=== PATIENT | female | born 1970 | race African-American/Black ===

== ENCOUNTER 2017-09-29 11:10 | Emergency (ER) | payer SELFPAY ==
[2017-09-29 11:41] LABS: Absolute Lymphocytes (CBC) 2.4 K/uL (0.7-4.9); Absolute Monocytes 1.1 K/uL (0.1-1.3); Absolute Neutrophil 6.6 K/uL (1.8-8.0); Basophils % 0.5 % (0-1.3); Hematocrit 38.7 % (36.0-45.0); Lymphocytes % 23.6 % (15.3-44.8); MCH 30.9 pg (27.0-35.0); MCV 89.1 fL (80-100); MPV 8.1 fL (7.6-11.3); Monocytes % 10.6 % (3.3-12.3); RBC Red Blood Cell Count 4.34 M/uL (3.86-4.86)
[2017-09-29 11:50] LABS: Protime INR 0.96
[2017-09-29 11:59] LABS: Urine Blood NEGATIVE (NEG); Urine Glucose NEGATIVE (NEG); Urine Protein NEGATIVE (NEG); Urine Specific Gravity 1.015 (1.005-1.030); Urine pH 7.5 (5.0-7.0)
[2017-09-29 12:00] LABS: Barbiturates NEGATIVE; Benzodiazepines NEGATIVE; Cocaine NEGATIVE; METHAMPHETAM NEGATIVE (NEGATIVE); Opiates NEGATIVE; Phencyclidine NEGATIVE; THC Cannibis NEGATIVE
[2017-09-29 12:33] LABS: ALT/SGPT 40 IU/L (10-60); AST/SGOT 33 IU/L (10-42); Alkaline Phosphatase 63 IU/L (42-121); BUN Blood Urea Nitrogen 9 mg/dL (6-20); Bicarbonate 29 mEq/L (21-31); Bilirubin Direct < 0.1 mg/dL (0-0.2); Bilirubin Total < 0.2 mg/dL (0.3-1.2); Glucose Level 96 mg/dL (65-120); Potassium 3.6 mEq/L (3.6-5.0); Protein, Total 7.2 g/dL (6.0-8.3); Sodium Level 134 mEq/L (135-145)
[2017-09-29] MEDS ORDERED: ACETAMINOPHEN 500 MG TAB ONE ×2 (12:34→22:34)
[2017-09-29 12:43] LABS: Alcohol Serum/Plasma < 10 mg/dl
[2017-09-29] MEDS ORDERED: LISINOPRIL 10 MG TAB ONE (22:34)
[2017-09-29] MEDS ORDERED: hydrOXYzine HCl 25 MG TAB ONE (22:34)
--- NOTE | 2017-09-29 22:41 | EKG ---
Test Date: 2017-09-29 Test Time: 11:26:24 Clinical Nurse: SHAISTA MEASUREMENT RESULTS: Intervals: Rate: 67 AK: 178 QRSD: 78 QT: 414 QTc: 437 [place]: P: 72 AK: 178 QRS: 61 T: 56 INTERPRETIVE STATEMENTS: Normal sinus rhythm Nonspecific T wave abnormality Abnormal ECG No previous ECG available for comparison Electronically Signed On 09-29-17 22:40:43 CDT by Cornell Garza
[2017-09-29] MEDS ORDERED: QUETIAPINE 100MG TAB ONE (22:42)
[2017-09-30] MEDS ORDERED: hydrOXYzine HCl 25 MG TAB ONE (11:34)
[2017-09-30] MEDS ORDERED: AMOXICILLIN TRIHYDR 250 MG CAP ONE (11:34)
[2017-09-30] MEDS ORDERED: QUETIAPINE 100MG TAB PO ONE (11:45)
[2017-09-30] MEDS ORDERED: NICOTINE 14 MG/PAT TD ONE (12:00)
[2017-09-30] MEDS ORDERED: QUETIAPINE 100MG TAB PO SCH (21:00)
[2017-09-30] MEDS ORDERED: hydrOXYzine HCl 25 MG TAB PO SCH (21:00)
[2017-09-30] MEDS ORDERED: AMOXICILLIN TRIHYDR 250 MG CAP PO SCH (21:00)
[2017-09-30] MEDS ORDERED: QUETIAPINE 100MG TAB ONE (23:08)
[2017-10-01] MEDS ORDERED: hydrOXYzine HCl 25 MG TAB ONE (09:12)
[2017-10-01] MEDS ORDERED: QUETIAPINE 100MG TAB PO ONE (09:15)
--- NOTE | 2017-10-01 17:25 | ER ---
Nurse's Notes [facility] Name: Lizett Jacobsen Age: 47 yrs Sex: Female : 1970 Arrival Date: 09/29/2017 Time: 11:16 Bed 17 Private MD: Diagnosis: Suicidal ideations;Major depressive disorder, recurrent Presentation: 09/29 11:18 Presenting complaint: EMS states: Suicidal ideations for "a few days". Pt does not have ss a plan currently, but has had three previous attempts by taking medications in excess and running in traffic. Patient has been at [facility] receiving rehabilitation for a cocaine addiction. Pt reports her last day to use was 7 days ago. Transition of care: patient was not received from another setting of care. Onset of symptoms is unknown. Risk Assessment: Do you want to hurt yourself or someone else? Patient reports desire/thoughts of hurting themselves or someone else. Provider notified. Initial Sepsis Screen: Does the patient meet any 2 criteria? No. Patient's initial sepsis screen is negative. Does the patient have a suspected source of infection? No. Patient's initial sepsis screen is negative. Note Pt wrote a note stating that she has been having thoughts about hurting herself. See chart for note. Care prior to arrival: None. 11:18 Method Of Arrival: EMS: [facility] ss 11:18 Acuity: HENRIK 2 ss CLAIMS SERVICE ADJUSTOR: 10/01 18:36 LMP N/A - Irregular menses em Historical: - Allergies: 09/29 12:40 Ibuprofen; ed1 - Home Meds: 11:24 hydroxyzine HCl 50 mg Oral tab 1 tab twice a day [Active]; quetiapine 300 mg oral tab 1 ss tab once daily [Active]; - PMHx: 11:24 Depression; Anxiety; ss - Immunization history:: Adult Immunizations up to date. - Ebola Screening: : Patient denies exposure to infectious person Patient denies travel to an Ebola-affected area in the 21 days before illness onset. - Social history:: Smoking status: Patient uses tobacco products, smokes one-half pack cigarettes per day. Screenin:32 Nutritional screening: No deficits noted. Tuberculosis screening: Never had TB. ss 12:29 Abuse screen: Denies threats or abuse. Fall Risk None identified. sv Assessment: 11:25 General: Appears in no apparent distress. comfortable, Behavior is calm, cooperative, sv appropriate for age. Pain: Denies pain. Neuro: Level of Consciousness is awake, alert, obeys commands, Oriented to person, place, time, situation, Moves all extremities. Full function. Respiratory: Respiratory effort is even, unlabored, Respiratory pattern is regular, symmetrical. Derm: Skin is normal. Musculoskeletal: Range of motion: intact in all extremities. 13:12 Reassessment: Patient appears in no apparent distress at this time. No changes from sv previously documented assessment. Patient and/or family updated on plan of care and expected duration. Pain level reassessed. Patient is alert, oriented x 3, equal unlabored respirations, skin warm/dry/pink. 13:13 Reassessment: Pt given lunch tray. sv 13:47 Reassessment: Patient appears in no apparent distress at this time. Pt appears to be sv sleeping with eyes closed. Respirations even and unlabored with no difficulty breathing. 15:17 Reassessment: Patient appears in no apparent distress at this time. No changes from sv previously documented assessment. Patient and/or family updated on plan of care and expected duration. Pain level reassessed. Patient is alert, oriented x 3, equal unlabored respirations, skin warm/dry/pink. 15:17 Reassessment: Pt given panchito crackers. sv 16:41 Reassessment: Patient appears in no apparent distress at this time. Patient and/or sv family updated on plan of care and expected duration. Pain level reassessed. Patient is alert, oriented x 3, equal unlabored respirations, skin warm/dry/pink. 17:20 Reassessment: Pt given dinner tray and juice. sv 17:36 Reassessment: [employer] keeper helper at bedside at this time with the pt, pt appears sg pleasant speaking calmly with [employer] rep. 18:04 Reassessment: Patient appears in no apparent distress at this time. No changes from sv previously documented assessment. Patient and/or family updated on plan of care and expected duration. Pain level reassessed. Patient is alert, oriented x 3, equal unlabored respirations, skin warm/dry/pink. 18:35 Reassessment: Patient appears in no apparent distress at this time. Patient and/or sv family updated on plan of care and expected duration. Pain level reassessed. Patient is alert, oriented x 3, equal unlabored respirations, skin warm/dry/pink. 19:10 Reassessment: Patient appears in no apparent distress at this time. patient received on mg2 bed sleeping comfortably. 20:27 Reassessment: Received a call from Ronny Thurston from [facility] who wanted to know ao if patient will be going back to [facility] any time soon. Karena was told that patient is currently waiting on a transfer. 21:22 Reassessment: Patient wake up agitated and stating that she needs to speak to the ao doctor. Charge nurse was notified. 22:55 Reassessment: Received a verbal order from Dr Simpson to medicate patient with home ao medications. Orders for medications had been put and patient had been medicated with her home medications. See MAR for administrations. 23:40 Reassessment: Patient appears in no apparent distress at this time. Patient sleeping in ao no aperient distress. sitter in front of patient room. Patient with door open. 09/30 00:30 Reassessment: Patient appears in no apparent distress at this time. Sitter in front of ao patient room. Door open and patient appears under no distress. 01:25 Reassessment: patient sleeping on bed. mg2 03:03 Reassessment: Patient appears in no apparent distress at this time. Patient sleeping ao under no apparent distress. Sitter in front of patient's room. Patient's door is open. 06:56 Reassessment: patient is awake, no apparent distress noted. mg2 07:19 Reassessment: Patient appears in no apparent distress at this time. Patient and/or ch family updated on plan of care and expected duration. Pain level reassessed. pt sleeping in bed. pt sits up, looks around. I ask her if she needs anything, she states she needs breakfast. I inform pt she has a tray ordered and coming. pt states thanks and rolls back over. pt states she just wants to , but not having active suicidal thoughts right now. 08:20 Reassessment: Patient appears in no apparent distress at this time. ch 09:17 Reassessment: Patient appears in no apparent distress at this time. Patient and/or ch family updated on plan of care and expected duration. Pain level reassessed. pt finished 100% of breakfast, drank two cups of juice and one water cup. pt voids to [facility], sleeping in room now. no s/s of distress. pt denies wanting to kill herself at this time, but states she just feels off, and hopeless. 10:08 General: Appears in no apparent distress. comfortable, Behavior is calm, appropriate aj for age, quiet. Cardiovascular: Capillary refill < 3 seconds in bilateral fingers Patient's skin is warm and dry. Respiratory: Airway is patent Respiratory effort is even, unlabored, Respiratory pattern is regular, symmetrical. Derm: Skin is pink, warm \\T\\ dry. normal. 10:45 Reassessment: Patient using phone at nurses station for personal call. aj 10:52 Reassessment: Dr Kamara assessed patient at bedside. aj 11:05 Reassessment: This nurse spoke with patient about concerns regarding television. I aj instructed patient that I would place a work order for the TV. I was able to turn on TV to one channel, but was not able to change channel as remote is missing. Patient stated "it would be fine". 12:29 Reassessment: Patient provided lunch tray. aj 12:36 Reassessment: Patient provided with nicotine patch, as requested. Patient appears to be aj resting comfortably in bed. 12:45 Reassessment: Cornelia from IT brought remote for TV and set TV to patient requested aj channel. 14:54 Reassessment: Patient appears in no apparent distress at this time. No changes from aj previously documented assessment. Patient and/or family updated on plan of care and expected duration. Pain level reassessed. Patient is alert, oriented x 3, equal unlabored respirations, skin warm/dry/pink. 16:13 Reassessment: Patient is using the phone at the nurses station. aj 19:30 Reassessment: receieved patient from AM shift. lying on bed, asleep. already on rv patient's gown. VS are stable. 22:30 Reassessment: patient got a little anxious and demanding for her Seroquel dose. rv facilitated and given orally. 22:30 Reassessment: patient is asleep on her left side. rv 10/01 00:35 Reassessment: patient woke up. asked for some biscuits. given dose of Seroquel 300 mg rv PO. 02:45 Reassessment: dr Simpson went inside the room and evaluated the patient. patient is rv calm and quiet. patient is still for transfer as of this moment. 06:38 Reassessment: patient is still asleep laying on her back. VS are good. rv 06:42 Reassessment: patient did not express any plans for suicidal ideations the whole night. rv patient is calm and quiet. most of the time sleeping. 07:05 Reassessment: Patient appears in no apparent distress at this time. resting comfortably em with eyes closed, respirations even and unlabored, skin normal warm and dry. 08:17 Reassessment: Patient appears in no apparent distress at this time. Patient and/or em family updated on plan of care and expected duration. Pain level reassessed. up and eating breakfast tray, reports wanting to hurt herself "maybe a little." does not have a plan. 09:15 Reassessment: Patient appears in no apparent distress at this time. pt request em medications, "I take 50 mg hydroxyzine and 150 mg Seroquel. They gave me my Seroquel yesterday but not my hydroxzine." Dr. Parks notified, new orders received. 12:00 Reassessment: Patient appears in no apparent distress at this time. Patient and/or em family updated on plan of care and expected duration. Pain level reassessed. Patient is alert, oriented x 3, equal unlabored respirations, skin warm/dry/pink. 14:00 Reassessment: Patient appears in no apparent distress at this time. Patient and/or em family updated on plan of care and expected duration. Pain level reassessed. Patient is alert, oriented x 3, equal unlabored respirations, skin warm/dry/pink. 15:00 Reassessment: Patient appears in no apparent distress at this time. Patient and/or em family updated on plan of care and expected duration. Pain level reassessed. Patient is alert, oriented x 3, equal unlabored respirations, skin warm/dry/pink. 17:40 Reassessment: Patient appears in no apparent distress at this time. pt signed consent em form to be transferred. 18:43 Reassessment: Patient appears in no apparent distress at this time. Patient and/or em family updated on plan of care and expected duration. Pain level reassessed. report given to EMS, will transport to [facility]. Psych: 09/29 11:25 Subjective: Patient's mood is sad, Delusions are denied, Hallucinations are denied sv Having thoughts of suicide. Plan for suicide is "Well all I had at the rehab place is razors and that's what I was going to use.". Objective: Patient is cooperative, Speech is normal, Affect is appropriate. Interventions: Removed personal items and placed in bag. Patient placed in hospital gown. Searched person for dangerous items. Urine collected and sent for urine drug test. Patient reassessed during use of restraints. Patient is physically safe. Patient's cardiac status is stable. Patient's respirations are even and unlabored. Patient has good circulation in all extremities as indicated by capillary refill < 3 seconds. Patient's ROM assessed and is intact. Patient nutrition and hydration needs will continue to be monitored and addressed. Patient hygiene and elimination needs met. Patient assessed for signs of distress. Patient remains reasonably comfortable at this time. Assisted patient in de-escalation of behavior by removing stimuli causing behavior where possible. Suicide Risk Assessment: Sad Person Scale: Sex of patient: Female: Score 0 points. Age of patient: Score 0 point if patient falls outside of specified age parameters. Depression: Score 1 point if signs of depression are present. Previous Attempt: Score 1 point if patient has previously attempted suicide. Substance Abuse: Score 1 point if patient abuses alcohol or drugs. Rational Thinking: Score 0 point if patient has rational thinking. Social Support: Score 0 if social support is present/available. Organized Plan: Score 1 point if patient had a plan in place. Relationship: Score 0 point if patient has a spouse or domestic partner. Chronic Sickness: Score 1 point if patient has illness, chronic, debilitating, or severe. TOTAL POINTS: If total points are 5-6, proposed clinical action is to strongly consider hospitalization, depending upon confidence in the follow-up arrangement. Implement suicide precautions. Safety Checks: Personal items have been removed. Door is open. No visitors are present at this time. Patient uses cocaine, Last use was 09/21/17. Patient uses marijuana Last use was 09/22/17.. Commitment: Patient will be a voluntary commitment. Vital Signs: 11:31 BP 120 / 84; Pulse 58; Resp 17; Temp 98.0(O); Pulse Ox 100% on R/A; Weight 58.97 kg; ss Height 5 ft. 4 in. (162.56 cm); Pain 0/10; 16:40 BP 116 / 71; Pulse 68; Resp 16; Pulse Ox 100% ; sv 20:21 BP 144 / 86; Pulse 68; Resp 17; Temp 98.2; Pulse Ox 99% on R/A; mw2 0607 00:17 BP 95 / 59; Pulse 88; Resp 18; Temp 98.3(O); Pulse Ox 99% on R/A; Pain 0/10; mg2 04:20 BP 110 / 60; Pulse 72; Resp 17; Temp 98.4; Pulse Ox 99% on R/A; mw2 07:19 BP 116 / 58; Pulse 65; Resp 18; Temp 98.3; Pulse Ox 99% on R/A; Pain 0/10; ch 10:24 BP 102 / 70; Pulse 76; Resp 16 S; Pulse Ox 100% on R/A; Pain 7/10; jb4 11:28 BP 101 / 61; Pulse 64; Resp 16 S; Temp 98.3(O); Pulse Ox 100% on R/A; Pain 7/10; jb4 15:30 BP 95 / 52; Pulse 93; Resp 16 S; Temp 98.3(O); Pulse Ox 98% on R/A; Pain 7/10; jb4 19:30 BP 104 / 60; Pulse 92 LA; Resp 16 S; Temp 98.5(O); Pulse Ox 98% on R/A; Pain 8/10; jb4 23:30 BP 97 / 57; Pulse 95; Resp 14; Pulse Ox 98% ; rv 06/08 03:30 BP 101 / 61; Pulse 90; Resp 14; Pulse Ox 98% ; bp 08:00 BP 109 / 62; Pulse 79; Resp 18; Pulse Ox 100% on R/A; dh3 12:04 BP 107 / 54; Pulse 82; Resp 18; Pulse Ox 99% ; Pain 0/10; tt1 16:00 BP 102 / 66; Pulse 82; Resp 17; Pulse Ox 100% on R/A; dh3 09/29 11:31 Body Mass Index 22.31 (58.97 kg, 162.56 cm) ss 09/30 00:17 patient is sleeping. mg2 15:30 Pt was asleep prior to b/p being taken. jb4 ED Course: 09/29 11:16 Patient arrived in ED. sv 11:16 Mani Garay PA is PHCP. cp 11:16 Bob Bonilla MD is Attending Physician. cp 11:21 Polly Gray RN is Primary Nurse. sv 11:23 Triage completed. ss 11:24 Arm band placed on right wrist. ss 11:25 Initial lab(s) drawn, by me, sent to lab. Inserted saline lock: 20 gauge in right sv antecubital area, using aseptic technique. Blood collected. Flushed right antecubital with 5 ml normal saline. 11:30 Safety Checks: Personal items have been removed. The door is open or patient has been sv placed in a hallway bed/chair. There are no family/friend visitors at this time Sitter present at this time. 11:31 EKG done, by line technician. reviewed by Bob Bonilla MD. at1 11:32 Patient has correct armband on for positive identification. Bed in low position. Call ss light in reach. 11:42 Urine --Ancillary (enter results) Sent. sv 11:42 Urine Dipstick--Ancillary (enter results) Sent. sv 11:45 Safety Checks: Personal items have been removed. The door is open or patient has been sv placed in a hallway bed/chair. There are no family/friend visitors at this time Sitter present at this time. 12:00 Safety Checks: Personal items have been removed. The door is open or patient has been sv placed in a hallway bed/chair. There are no family/friend visitors at this time Sitter present at this time. 12:15 Safety Checks: Personal items have been removed. The door is open or patient has been ed1 placed in a hallway bed/chair. There are no family/friend visitors at this time Sitter present at this time. 12:17 Diet tray given. ed1 12:30 Safety Checks: Personal items have been removed. The door is open or patient has been ed1 placed in a hallway bed/chair. There are no family/friend visitors at this time Sitter present at this time. Other: Pt reports tooth pain. GUSTAVO Matias notified. 12:45 Safety Checks: Personal items have been removed. The door is open or patient has been ed1 placed in a hallway bed/chair. There are no family/friend visitors at this time Sitter present at this time. 13:00 Safety Checks: Personal items have been removed. The door is open or patient has been ed1 placed in a hallway bed/chair. There are no family/friend visitors at this time Sitter present at this time. 13:15 Safety Checks: Personal items have been removed. The door is open or patient has been ed1 placed in a hallway bed/chair. There are no family/friend visitors at this time Sitter present at this time. 13:30 Appears to be sleeping. Safety Checks: Personal items have been removed. The door is ed1 open or patient has been placed in a hallway bed/chair. There are no family/friend visitors at this time Sitter present at this time. 13:45 Appears to be sleeping. Safety Checks: Personal items have been removed. The door is ed1 open or patient has been placed in a hallway bed/chair. There are no family/friend visitors at this time Sitter present at this time. 14:00 Appears to be sleeping. Safety Checks: Personal items have been removed. The door is ed1 open or patient has been placed in a hallway bed/chair. There are no family/friend visitors at this time Sitter present at this time. 14:15 Appears to be sleeping. Safety Checks: Personal items have been removed. The door is ed1 open or patient has been placed in a hallway bed/chair. There are no family/friend visitors at this time Sitter present at this time. 14:30 Appears to be sleeping. Safety Checks: Personal items have been removed. The door is ed1 open or patient has been placed in a hallway bed/chair. There are no family/friend visitors at this time Sitter present at this time. 14:45 Appears to be sleeping. Safety Checks: Personal items have been removed. The door is ed1 open or patient has been placed in a hallway bed/chair. There are no family/friend visitors at this time Sitter present at this time. 15:00 Safety Checks: Personal items have been removed. The door is open or patient has been sv placed in a hallway bed/chair. There are no family/friend visitors at this time Sitter present at this time. 15:15 Safety Checks: Personal items have been removed. The door is open or patient has been sv placed in a hallway bed/chair. There are no family/friend visitors at this time Sitter present at this time. 15:30 Safety Checks: Personal items have been removed. The door is open or patient has been sv placed in a hallway bed/chair. There are no family/friend visitors at this time Sitter present at this time. 15:45 Safety Checks: Personal items have been removed. The door is open or patient has been sv placed in a hallway bed/chair. There are no family/friend visitors at this time Sitter present at this time. 16:00 Safety Checks: Personal items have been removed. The door is open or patient has been sv placed in a hallway bed/chair. There are no family/friend visitors at this time Sitter present at this time. 16:15 Safety Checks: Personal items have been removed. The door is open or patient has been sv placed in a hallway bed/chair. There are no family/friend visitors at this time Sitter present at this time. 16:30 Safety Checks: Personal items have been removed. The door is open or patient has been sv placed in a hallway bed/chair. There are no family/friend visitors at this time Sitter present at this time. 16:45 Safety Checks: Personal items have been removed. The door is open or patient has been sv placed in a hallway bed/chair. There are no family/friend visitors at this time Sitter present at this time. 17:00 Safety Checks: Personal items have been removed. The door is open or patient has been sv placed in a hallway bed/chair. There are no family/friend visitors at this time Sitter present at this time. 17:15 No apparent distress. Resting quietly. Safety Checks: Personal items have been removed. sv The door is open or patient has been placed in a hallway bed/chair. There are no family/friend visitors at this time Sitter present at this time. 17:15 Safety checks: Items removed: yes. Door open/sign placed on door: yes. Family/friend 5 present: no. 17:30 Safety Checks: Personal items have been removed. The door is open or patient has been sv placed in a hallway bed/chair. There are no family/friend visitors at this time Sitter present at this time. 17:30 Safety checks: Items removed: yes. Door open/sign placed on door: yes. Family/friend mh5 present: Other: [facility] with pt. 17:45 Safety Checks: Personal items have been removed. The door is open or patient has been sv placed in a hallway bed/chair. There are no family/friend visitors at this time Sitter present at this time. 17:45 Safety checks: Items removed: yes. Door open/sign placed on door: yes. Family/friend mh5 present: no. 18:00 Safety Checks: Personal items have been removed. The door is open or patient has been sv placed in a hallway bed/chair. There are no family/friend visitors at this time Sitter present at this time. 18:00 Safety checks: Items removed: yes. Door open/sign placed on door: yes. Family/friend mw2 present: no. 18:15 No apparent distress. Safety Checks: Personal items have been removed. The door is open sv or patient has been placed in a hallway bed/chair. There are no family/friend visitors at this time Sitter present at this time. 18:15 Safety checks: Items removed: yes. Door open/sign placed on door: yes. Family/friend mw2 present: no. 18:30 Safety Checks: Personal items have been removed. The door is open or patient has been sv placed in a hallway bed/chair. There are no family/friend visitors at this time Sitter present at this time. 18:30 Safety checks: Items removed: yes. Door open/sign placed on door: yes. Family/friend mw2 present: no. 18:45 Safety Checks: Personal items have been removed. The door is open or patient has been sv placed in a hallway bed/chair. There are no family/friend visitors at this time Sitter present at this time. 18:45 Safety checks: Items removed: yes. Door open/sign placed on door: yes. Family/friend mw2 present: no. 19:00 Safety Checks: Personal items have been removed. The door is open or patient has been sv placed in a hallway bed/chair. There are no family/friend visitors at this time Sitter present at this time. 19:00 Safety checks: Items removed: yes. Door open/sign placed on door: yes. Family/friend mw2 present: no. 19:07 Report given to Elvin CHEN. sv 19:15 Safety checks: Items removed: yes. Door open/sign placed on door: yes. Family/friend mw2 present: no. 19:30 Safety checks: Items removed: yes. Door open/sign placed on door: yes. Family/friend mw2 present: no. 19:45 Safety checks: Items removed: yes. Door open/sign placed on door: yes. Family/friend mw2 present: no. 20:00 Safety checks: Items removed: yes. Door open/sign placed on door: yes. Family/friend mw2 present: no. 20:15 Safety checks: Items removed: yes. Door open/sign placed on door: yes. Family/friend mw2 present: no. 20:30 Safety checks: Items removed: yes. Door open/sign placed on door: yes. Family/friend mw2 present: no. 20:45 Safety checks: Items removed: yes. Door open/sign placed on door: yes. Family/friend mw2 present: no. 21:00 Safety checks: Items removed: yes. Door open/sign placed on door: yes. Family/friend mw2 present: no. 21:15 Safety checks: Items removed: yes. Door open/sign placed on door: yes. Family/friend mw2 present: no. 21:30 Safety checks: Items removed: yes. Door open/sign placed on door: yes. Family/friend mw2 present: no. 21:45 Safety checks: Items removed: yes. Door open/sign placed on door: yes. Family/friend mw2 present: no. 22:00 Safety checks: Items removed: yes. Door open/sign placed on door: yes. Family/friend mw2 present: no. 22:15 Safety checks: Items removed: yes. Door open/sign placed on door: yes. Family/friend mw2 present: no. 22:30 Safety checks: Items removed: yes. Door open/sign placed on door: yes. Family/friend mw2 present: no. Diet: Patient given a regular meal tray. Patient given ice chips. Patient given juice. Diet: Tolerated well. 22:45 Safety checks: Items removed: yes. Door open/sign placed on door: yes. Family/friend mw2 present: no. 23:00 Safety checks: Items removed: yes. Door open/sign placed on door: yes. Family/friend mw2 present: no. 23:15 Safety checks: Items removed: yes. Door open/sign placed on door: yes. Family/friend mw2 present: no. 23:30 Safety checks: Items removed: yes. Door open/sign placed on door: yes. Family/friend mw2 present: no. 23:45 Safety checks: Items removed: yes. Door open/sign placed on door: yes. Family/friend mw2 present: no. 09/30 00:00 Safety checks: Items removed: yes. Door open/sign placed on door: yes. Family/friend mw2 present: no. 00:15 Safety checks: Items removed: yes. Door open/sign placed on door: yes. Family/friend mw2 present: no. Diet: Patient given snack. Patient given ice chips. Patient given juice. 00:30 Safety checks: Items removed: yes. Door open/sign placed on door: yes. Family/friend mw2 present: no. Safety checks: Items removed: yes. Door open/sign placed on door: yes. Family/friend present: no. 00:45 Safety checks: Items removed: yes. Door open/sign placed on door: yes. Family/friend mw2 present: no. 01:00 Safety checks: Items removed: yes. Door open/sign placed on door: yes. Family/friend mw2 present: no. 01:15 Safety checks: Items removed: yes. Door open/sign placed on door: yes. Family/friend mw2 present: no. 01:30 Safety checks: Items removed: yes. Door open/sign placed on door: yes. Family/friend mw2 present: no. 01:45 Safety checks: Items removed: yes. Door open/sign placed on door: yes. Family/friend mw2 present: no. 02:00 Safety checks: Items removed: yes. Door open/sign placed on door: yes. Family/friend mw2 present: no. 02:15 Safety checks: Items removed: yes. Door open/sign placed on door: yes. Family/friend mw2 present: no. 02:30 Safety checks: Items removed: yes. Door open/sign placed on door: yes. Family/friend mw2 present: no. 02:45 Safety checks: Items removed: yes. Door open/sign placed on door: yes. Family/friend mw2 present: no. 03:00 Safety checks: Items removed: yes. Door open/sign placed on door: yes. Family/friend mw2 present: no. 03:15 Safety checks: Items removed: yes. Door open/sign placed on door: yes. Family/friend mw2 present: no. 03:30 Safety checks: Items removed: yes. Door open/sign placed on door: yes. Family/friend mw2 present: no. 03:45 Safety checks: Items removed: yes. Door open/sign placed on door: yes. Family/friend mw2 present: no. 04:00 Safety checks: Items removed: yes. Door open/sign placed on door: yes. Family/friend mw2 present: no. 04:15 Safety checks: Items removed: yes. Door open/sign placed on door: yes. Family/friend mw2 present: no. 04:30 Safety checks: Items removed: yes. Door open/sign placed on door: yes. Family/friend mw2 present: no. 04:45 Safety checks: Items removed: yes. Door open/sign placed on door: yes. Family/friend mw2 present: no. 05:00 Safety checks: Items removed: yes. Door open/sign placed on door: yes. Family/friend mw2 present: no. 05:15 Safety checks: Items removed: yes. Door open/sign placed on door: yes. Family/friend mw2 present: no. 05:30 Safety checks: Items removed: yes. Door open/sign placed on door: yes. Family/friend mw2 present: no. 05:45 Safety checks: Items removed: yes. Door open/sign placed on door: yes. Family/friend mw2 present: no. 06:00 Safety checks: Items removed: yes. Door open/sign placed on door: yes. Family/friend mw2 present: no. 06:15 Safety checks: Items removed: yes. Door open/sign placed on door: yes. Family/friend mw2 present: no. 06:30 Safety checks: Items removed: yes. Door open/sign placed on door: yes. Family/friend mw2 present: no. 06:45 Safety checks: Items removed: yes. Door open/sign placed on door: yes. Family/friend mw2 present: no. 07:00 Safety Checks: Personal items have been removed. The door is open or patient has been ch placed in a hallway bed/chair. There are no family/friend visitors at this time Sitter present at this time. 07:15 Safety Checks: Personal items have been removed. The door is open or patient has been ch placed in a hallway bed/chair. There are no family/friend visitors at this time Sitter present at this time. 07:28 Aurora Brooks RN is Primary Nurse. 07:30 Safety Checks: Personal items have been removed. The door is open or patient has been ch placed in a hallway bed/chair. There are no family/friend visitors at this time Sitter present at this time. 07:35 Safety checks: Items removed: yes. Door open/sign placed on door: yes. Family/friend em1 present: no. 08:00 Safety checks: Items removed: yes. Door open/sign placed on door: yes. Family/friend em1 present: no. 08:15 Safety checks: Items removed: yes. Door open/sign placed on door: yes. Family/friend em1 present: no. 08:30 Safety checks: Items removed: yes. Door open/sign placed on door: yes. Family/friend em1 present: no. 08:47 Safety checks: Items removed: yes. Door open/sign placed on door: yes. Family/friend em1 present: no. 08:51 Safety checks: Items removed: yes. Door open/sign placed on door: yes. Family/friend em1 present: no. 09:04 Safety checks: Items removed: yes. Door open/sign placed on door: yes. Family/friend jb4 present: no. 09:17 Safety checks: Items removed: yes. Door open/sign placed on door: yes. Family/friend jb4 present: no. 09:30 Safety checks: Items removed: yes. Door open/sign placed on door: yes. Family/friend jb4 present: no. 09:43 Safety checks: Items removed: yes. Door open/sign placed on door: yes. Family/friend jb4 present: no. 09:55 Safety checks: Items removed: yes. Door open/sign placed on door: yes. Family/friend jb4 present: no. 10:01 Primary Nurse role handed off by Aurora Brooks RN 10:01 Vida Mackenzie RN is Primary Nurse. aj 10:07 Safety checks: Items removed: yes. Door open/sign placed on door: yes. Family/friend jb4 present: no. 10:22 Safety checks: Items removed: yes. Door open/sign placed on door: yes. Family/friend jb4 present: no. 10:37 Safety checks: Items removed: yes. Door open/sign placed on door: yes. Family/friend jb4 present: Other: Pt ambulated to nurses station to use telephone. 10:51 Safety checks: Items removed: yes. Door open/sign placed on door: yes. Family/friend jb4 present: no. 11:04 Safety checks: Items removed: yes. Door open/sign placed on door: yes. Family/friend jb4 present: Other: Pt ambulated to bedside commode and back to bed. 11:19 Safety checks: Items removed: yes. Door open/sign placed on door: yes. Family/friend jb4 present: no. 11:34 Safety checks: Items removed: yes. Door open/sign placed on door: yes. Family/friend jb4 present: no. 11:51 Safety checks: Items removed: yes. Door open/sign placed on door: yes. Family/friend em1 present: no. 12:03 Safety checks: Items removed: yes. Door open/sign placed on door: yes. Family/friend jb4 present: no. 12:16 Safety checks: Items removed: yes. Door open/sign placed on door: yes. Family/friend jb4 present: no. 12:30 Safety checks: Items removed: yes. Door open/sign placed on door: yes. Family/friend jb4 present: no. 12:45 Safety checks: Items removed: yes. Door open/sign placed on door: yes. Family/friend jb4 present: no. 13:00 Safety checks: Items removed: yes. Door open/sign placed on door: yes. Family/friend jb4 present: no. 13:15 Safety checks: Items removed: yes. Door open/sign placed on door: yes. Family/friend jb4 present: no. 13:30 Safety checks: Items removed: yes. Door open/sign placed on door: yes. Family/friend jb4 present: no. 13:45 Safety checks: Items removed: yes. Door open/sign placed on door: yes. Family/friend jb4 present: no. 14:00 Safety checks: Items removed: yes. Door open/sign placed on door: yes. Family/friend jb4 present: Other: Pt ambulated to bedside commode and back to bed, and was given a television remote per request. 14:15 Safety checks: Items removed: yes. Door open/sign placed on door: yes. Family/friend jb4 present: no. 14:30 Safety checks: Items removed: yes. Door open/sign placed on door: yes. Family/friend jb4 present: Other: Pt was given a cup of ice with juice and panchito crackers per request. 14:45 Safety checks: Items removed: yes. Door open/sign placed on door: yes. Family/friend jb4 present: no. 15:00 Safety checks: Items removed: yes. Door open/sign placed on door: yes. Family/friend jb4 present: Other: television channel changed per pt's request. 15:15 Safety checks: Items removed: yes. Door open/sign placed on door: yes. Family/friend jb4 present: no. 15:30 Safety checks: Items removed: yes. Door open/sign placed on door: yes. Family/friend jb4 present: no. 15:45 Safety checks: Items removed: yes. Door open/sign placed on door: yes. Family/friend jb4 present: no. 16:00 Safety checks: Items removed: yes. Door open/sign placed on door: yes. Family/friend jb4 present: no. 16:15 Safety checks: Items removed: yes. Door open/sign placed on door: yes. Family/friend jb4 present: Other: pt ambulated to nurses station to use the telephone per request. 16:30 Safety checks: Items removed: yes. Door open/sign placed on door: yes. Family/friend jb4 present: no. 16:45 Safety checks: Items removed: yes. Door open/sign placed on door: yes. Family/friend jb4 present: no. 17:00 Safety checks: Items removed: yes. Door open/sign placed on door: yes. Family/friend jb4 present: no. 17:15 Safety checks: Items removed: yes. Door open/sign placed on door: yes. Family/friend jb4 present: no. 17:20 Safety checks: Family/friend present: Other: pt ambulated to the bedside commode and jb4 back to bed. 17:30 Safety checks: Items removed: yes. Door open/sign placed on door: yes. Family/friend jb4 present: Other: Pt given television remote per request. 17:45 Safety checks: Items removed: yes. Door open/sign placed on door: yes. Family/friend jb4 present: no. 18:00 Safety checks: Items removed: yes. Door open/sign placed on door: yes. Family/friend jb4 present: Other: given a cup of ice w/ juice and crackers per pt request. 18:15 Safety checks: Items removed: yes. Door open/sign placed on door: yes. Family/friend jb4 present: no. 18:30 Safety checks: Items removed: yes. Door open/sign placed on door: yes. Family/friend jb4 present: no. 18:45 Safety checks: Items removed: yes. Door open/sign placed on door: yes. Family/friend jb4 present: no. 19:00 Safety checks: Items removed: yes. Door open/sign placed on door: yes. Family/friend jb4 present: no. 19:01 Primary Nurse role handed off by Vida Mackenzie RN bp 19:01 Agustin Alves, RN is Primary Nurse. bp 19:15 Safety Checks: Personal items have been removed. The door is open or patient has been rv placed in a hallway bed/chair. There are no family/friend visitors at this time Sitter present at this time. 19:15 Safety checks: Items removed: yes. Door open/sign placed on door: yes. Family/friend jb4 present: no. 19:30 Safety Checks: Personal items have been removed. The door is open or patient has been rv placed in a hallway bed/chair. There are no family/friend visitors at this time Sitter present at this time. 19:30 Safety checks: Items removed: yes. Door open/sign placed on door: yes. Family/friend jb4 present: no. 19:45 Safety Checks: Personal items have been removed. The door is open or patient has been rv placed in a hallway bed/chair. There are no family/friend visitors at this time Sitter present at this time. 19:45 Safety checks: Items removed: yes. Door open/sign placed on door: yes. Family/friend jb4 present: no. 20:00 Safety Checks: Personal items have been removed. The door is open or patient has been rv placed in a hallway bed/chair. There are no family/friend visitors at this time Sitter present at this time. 20:00 Safety checks: Items removed: yes. Door open/sign placed on door: yes. Family/friend jb4 present: no. 20:15 Safety Checks: Personal items have been removed. The door is open or patient has been rv placed in a hallway bed/chair. There are no family/friend visitors at this time Sitter present at this time. 20:15 Safety checks: Items removed: yes. Door open/sign placed on door: yes. Family/friend jb4 present: no. 20:30 Safety Checks: Personal items have been removed. The door is open or patient has been rv placed in a hallway bed/chair. There are no family/friend visitors at this time Sitter present at this time. 20:30 Safety checks: Items removed: yes. Door open/sign placed on door: yes. Family/friend oe present: Other: Pt.asking for her night meds.Nurse Yves notified. 20:45 Safety Checks: Personal items have been removed. The door is open or patient has been rv placed in a hallway bed/chair. There are no family/friend visitors at this time Sitter present at this time. 20:45 Safety checks: Items removed: yes. Door open/sign placed on door: yes. Family/friend oe present: no. 21:00 Safety Checks: Personal items have been removed. The door is open or patient has been rv placed in a hallway bed/chair. There are no family/friend visitors at this time Sitter present at this time. 21:00 Safety checks: Items removed: yes. Door open/sign placed on door: yes. Family/friend oe present: no. 21:15 Safety Checks: Personal items have been removed. The door is open or patient has been rv placed in a hallway bed/chair. There are no family/friend visitors at this time Sitter present at this time. 21:30 Safety Checks: Personal items have been removed. The door is open or patient has been rv placed in a hallway bed/chair. There are no family/friend visitors at this time Sitter present at this time. 21:45 Safety Checks: Personal items have been removed. The door is open or patient has been rv placed in a hallway bed/chair. There are no family/friend visitors at this time Sitter present at this time. 22:00 Safety Checks: Personal items have been removed. The door is open or patient has been rv placed in a hallway bed/chair. There are no family/friend visitors at this time Sitter present at this time. 22:15 Safety Checks: Personal items have been removed. The door is open or patient has been rv placed in a hallway bed/chair. There are no family/friend visitors at this time Sitter present at this time. 22:30 Safety Checks: Personal items have been removed. The door is open or patient has been rv placed in a hallway bed/chair. There are no family/friend visitors at this time Sitter present at this time. 22:45 Safety Checks: Personal items have been removed. The door is open or patient has been rv placed in a hallway bed/chair. There are no family/friend visitors at this time Sitter present at this time. 23:00 Safety Checks: Personal items have been removed. The door is open or patient has been rv placed in a hallway bed/chair. There are no family/friend visitors at this time Sitter present at this time. 23:15 Safety Checks: Personal items have been removed. The door is open or patient has been rv placed in a hallway bed/chair. There are no family/friend visitors at this time Sitter present at this time. 23:30 Safety Checks: Personal items have been removed. The door is open or patient has been rv placed in a hallway bed/chair. There are no family/friend visitors at this time Sitter present at this time. 23:45 Safety Checks: Personal items have been removed. The door is open or patient has been rv placed in a hallway bed/chair. There are no family/friend visitors at this time Sitter present at this time. 10/01 00:00 Safety Checks: Personal items have been removed. The door is open or patient has been rv placed in a hallway bed/chair. There are no family/friend visitors at this time Sitter present at this time. 00:15 Safety Checks: Personal items have been removed. The door is open or patient has been rv placed in a hallway bed/chair. There are no family/friend visitors at this time Sitter present at this time. 00:30 Safety Checks: Personal items have been removed. The door is open or patient has been rv placed in a hallway bed/chair. There are no family/friend visitors at this time Sitter present at this time. 00:45 Safety Checks: Personal items have been removed. The door is open or patient has been rv placed in a hallway bed/chair. There are no family/friend visitors at this time Sitter present at this time. 01:00 Safety Checks: Personal items have been removed. The door is open or patient has been rv placed in a hallway bed/chair. There are no family/friend visitors at this time Sitter present at this time. 01:15 Safety Checks: Personal items have been removed. The door is open or patient has been rv placed in a hallway bed/chair. There are no family/friend visitors at this time Sitter present at this time. 01:30 Safety Checks: Personal items have been removed. The door is open or patient has been rv placed in a hallway bed/chair. There are no family/friend visitors at this time Sitter present at this time. 01:45 Safety Checks: Personal items have been removed. The door is open or patient has been rv placed in a hallway bed/chair. There are no family/friend visitors at this time Sitter present at this time. 02:00 Safety Checks: Personal items have been removed. The door is open or patient has been rv placed in a hallway bed/chair. There are no family/friend visitors at this time Sitter present at this time. 02:15 Safety Checks: Personal items have been removed. The door is open or patient has been rv placed in a hallway bed/chair. There are no family/friend visitors at this time Sitter present at this time. 02:30 Safety Checks: Personal items have been removed. The door is open or patient has been rv placed in a hallway bed/chair. There are no family/friend visitors at this time Sitter present at this time. 02:45 Safety Checks: Personal items have been removed. The door is open or patient has been rv placed in a hallway bed/chair. There are no family/friend visitors at this time Sitter present at this time. 03:00 Safety Checks: Personal items have been removed. The door is open or patient has been bp placed in a hallway bed/chair. There are no family/friend visitors at this time Sitter present at this time. 03:00 Safety Checks: Personal items have been removed. The door is open or patient has been rv placed in a hallway bed/chair. There are no family/friend visitors at this time Sitter present at this time. 03:15 Safety Checks: Personal items have been removed. The door is open or patient has been bp placed in a hallway bed/chair. There are no family/friend visitors at this time Sitter present at this time. 03:15 Safety Checks: Personal items have been removed. The door is open or patient has been rv placed in a hallway bed/chair. There are no family/friend visitors at this time Sitter present at this time. 03:30 Safety Checks: Personal items have been removed. The door is open or patient has been bp placed in a hallway bed/chair. There are no family/friend visitors at this time Sitter present at this time. 03:30 Safety Checks: Personal items have been removed. The door is open or patient has been rv placed in a hallway bed/chair. There are no family/friend visitors at this time Sitter present at this time. 03:45 Safety Checks: Personal items have been removed. The door is open or patient has been bp placed in a hallway bed/chair. There are no family/friend visitors at this time Sitter present at this time. 03:45 Safety Checks: Personal items have been removed. The door is open or patient has been rv placed in a hallway bed/chair. There are no family/friend visitors at this time Sitter present at this time. 04:00 Safety Checks: Personal items have been removed. The door is open or patient has been bp placed in a hallway bed/chair. There are no family/friend visitors at this time Sitter present at this time. 04:00 Safety Checks: Personal items have been removed. The door is open or patient has been rv placed in a hallway bed/chair. There are no family/friend visitors at this time Sitter present at this time. 04:15 Safety Checks: Personal items have been removed. The door is open or patient has been bp placed in a hallway bed/chair. There are no family/friend visitors at this time Sitter present at this time. 04:15 Safety Checks: Personal items have been removed. The door is open or patient has been rv placed in a hallway bed/chair. There are no family/friend visitors at this time Sitter present at this time. 04:30 Safety Checks: Personal items have been removed. The door is open or patient has been bp placed in a hallway bed/chair. There are no family/friend visitors at this time Sitter present at this time. 04:30 Safety Checks: Personal items have been removed. The door is open or patient has been rv placed in a hallway bed/chair. There are no family/friend visitors at this time Sitter present at this time. 04:45 Safety Checks: Personal items have been removed. The door is open or patient has been bp placed in a hallway bed/chair. There are no family/friend visitors at this time Sitter present at this time. 05:00 Safety Checks: Personal items have been removed. The door is open or patient has been bp placed in a hallway bed/chair. There are no family/friend visitors at this time Sitter present at this time. 05:15 Safety Checks: Personal items have been removed. The door is open or patient has been rv placed in a hallway bed/chair. There are no family/friend visitors at this time Sitter present at this time. 05:30 Safety Checks: Personal items have been removed. The door is open or patient has been rv placed in a hallway bed/chair. There are no family/friend visitors at this time Sitter present at this time. 05:45 Safety Checks: Personal items have been removed. The door is open or patient has been rv placed in a hallway bed/chair. There are no family/friend visitors at this time Sitter present at this time. 06:00 Safety Checks: Personal items have been removed. The door is open or patient has been rv placed in a hallway bed/chair. There are no family/friend visitors at this time Sitter present at this time. 06:15 Safety Checks: Personal items have been removed. The door is open or patient has been rv placed in a hallway bed/chair. There are no family/friend visitors at this time Sitter present at this time. 06:30 Safety Checks: Personal items have been removed. The door is open or patient has been rv placed in a hallway bed/chair. There are no family/friend visitors at this time Sitter present at this time. 06:45 Safety checks: Items removed: yes. Door open/sign placed on door: yes. Family/friend dh3 present: no. 07:00 Safety checks: Items removed: yes. Door open/sign placed on door: yes. Family/friend dh3 present: no. 07:15 Safety checks: Items removed: yes. Door open/sign placed on door: yes. Family/friend dh3 present: no. 07:30 Safety checks: Items removed: yes. Door open/sign placed on door: yes. Family/friend dh3 present: no. 07:45 Safety checks: Items removed: yes. Door open/sign placed on door: yes. Family/friend dh3 present: no. 08:00 Safety checks: Items removed: yes. Door open/sign placed on door: yes. Family/friend dh3 present: no. 08:15 Safety checks: Items removed: yes. Door open/sign placed on door: yes. Family/friend dh3 present: no. 08:30 Safety checks: Items removed: yes. Door open/sign placed on door: yes. Family/friend dh3 present: no. 08:45 Safety checks: Items removed: yes. Door open/sign placed on door: yes. Family/friend dh3 present: no. 09:00 Safety checks: Items removed: yes. Door open/sign placed on door: yes. Family/friend dh3 present: no. 09:15 Safety checks: Items removed: yes. Door open/sign placed on door: yes. Family/friend dh3 present: no. 09:30 Safety checks: Items removed: yes. Door open/sign placed on door: yes. Family/friend dh3 present: no. 09:45 Safety checks: Items removed: yes. Door open/sign placed on door: yes. Family/friend dh3 present: no. 10:00 Safety checks: Items removed: yes. Door open/sign placed on door: yes. Family/friend dh3 present: no. 10:15 Safety checks: Items removed: yes. Door open/sign placed on door: yes. Family/friend dh3 present: no. 10:30 Safety checks: Items removed: yes. Door open/sign placed on door: yes. Family/friend dh3 present: no. 10:45 Safety checks: Items removed: yes. Door open/sign placed on door: yes. Family/friend dh3 present: no. 11:00 Safety checks: Items removed: yes. Door open/sign placed on door: yes. Family/friend dh3 present: no. 11:15 Safety checks: Items removed: yes. Door open/sign placed on door: yes. Family/friend tt1 present: no. 11:31 Safety checks: Items removed: yes. Door open/sign placed on door: yes. Family/friend tt1 present: no. 11:40 Safety checks: Items removed: yes. Door open/sign placed on door: yes. Family/friend tt1 present: no. 12:00 Safety checks: Items removed: yes. Door open/sign placed on door: yes. Family/friend tt1 present: no. 12:15 Safety checks: Items removed: yes. Door open/sign placed on door: yes. Family/friend tt1 present: no. 12:30 Safety checks: Items removed: yes. Door open/sign placed on door: yes. Family/friend tt1 present: no. 12:45 Safety checks: Items removed: yes. Door open/sign placed on door: yes. Family/friend dh3 present: no. 13:00 Safety checks: Items removed: yes. Door open/sign placed on door: yes. Family/friend tt1 present: no. 13:15 Safety checks: Items removed: yes. Door open/sign placed on door: yes. Family/friend dh3 present: no. 13:30 Safety checks: Items removed: yes. Door open/sign placed on door: yes. Family/friend dh3 present: no. 13:45 Safety checks: Items removed: yes. Door open/sign placed on door: yes. Family/friend tt1 present: no. 13:55 Safety checks: Items removed: yes. Door open/sign placed on door: yes. Family/friend tt1 present: no. 14:15 Safety checks: Items removed: yes. Door open/sign placed on door: yes. Family/friend tt1 present: no. Safety checks: Items removed:. 14:30 Safety checks: Items removed: yes. Door open/sign placed on door: yes. Family/friend tt1 present: no. 14:45 Safety checks: Items removed: yes. Door open/sign placed on door: yes. Family/friend tt1 present: no. 15:00 Safety checks: Items removed: yes. Door open/sign placed on door: yes. Family/friend tt1 present: no. 15:15 Safety checks: Items removed: yes. Door open/sign placed on door: yes. Family/friend dh3 present: no. 15:30 Safety checks: Items removed: yes. Door open/sign placed on door: yes. Family/friend dh3 present: no. 15:45 Safety checks: Items removed: yes. Door open/sign placed on door: yes. Family/friend dh3 present: no. 16:00 Safety checks: Items removed: yes. Door open/sign placed on door: yes. Family/friend dh3 present: no. 16:15 Safety checks: Items removed: yes. Door open/sign placed on door: yes. Family/friend dh3 present: no. 16:30 Safety checks: Items removed: yes. Door open/sign placed on door: yes. Family/friend tt1 present: no. 16:45 Safety checks: Items removed: yes. Door open/sign placed on door: yes. Family/friend tt1 present: no. 17:00 Attending Physician role handed off by Bob Bonilla MD [facility] 17:00 Juan A Parks MD is Attending Physician. kdr 17:00 Safety checks: Items removed: yes. Door open/sign placed on door: yes. Family/friend tt1 present:. 17:15 Safety checks: Items removed: yes. Door open/sign placed on door: yes. Family/friend tt1 present: no. 17:29 Safety checks: Items removed: yes. Door open/sign placed on door: yes. Family/friend tt1 present: no. 17:45 Safety checks: Items removed: yes. Door open/sign placed on door: yes. Family/friend tt1 present: no. 18:00 Safety checks: Items removed: yes. Door open/sign placed on door: yes. Family/friend tt1 present: no. 18:15 Safety checks: Items removed: yes. Door open/sign placed on door: yes. Family/friend tt1 present: no. 18:15 No provider procedures requiring assistance completed. em 18:30 Safety checks: Items removed: yes. Door open/sign placed on door: yes. Family/friend tt1 present: no. 18:37 IV discontinued, intact, bleeding controlled, No redness/swelling at site. Pressure em dressing applied. Administered Medications: 09/29 12:42 CANCELLED (Duplicate Order): Tylenol 650 mg PO once sv 12:42 Drug: Tylenol 1000 mg Route: PO; sv 13:05 Follow up: Response: No adverse reaction sv 22:38 Drug: Tylenol 1000 mg Route: PO; mg2 09/30 01:23 Follow up: Response: No adverse reaction mg2 09/29 22:38 Drug: hydrOXYzine 50 mg Route: PO; mg2 09/30 01:07 Follow up: Response: No adverse reaction mg2 09/29 22:40 Drug: Lisinopril 10 mg Route: PO; mg2 09/30 01:07 Follow up: Response: No adverse reaction mg2 09/29 23:00 Drug: SEROquel 300 mg Route: PO; ao 09/30 02:31 Follow up: Response: No adverse reaction mg2 11:35 Drug: hydrOXYzine 50 mg Route: PO; aj 10/01 06:56 Follow up: Response: No adverse reaction em 09/30 11:35 Drug: Amoxicillin 500 mg Route: PO; aj 10/01 06:56 Follow up: Response: No adverse reaction em 09/30 12:02 Drug: SEROquel 150 mg Route: PO; aj 10/01 06:56 Follow up: Response: No adverse reaction em 09/30 12:35 Drug: Nicoderm CQ 14 mg/24 hr 14 mg Route: Transdermal; Site: anterior chest wall; aj 10/01 06:57 Follow up: Response: No adverse reaction em 09:13 Drug: hydrOXYzine 50 mg Route: PO; em 09:46 Follow up: Response: No adverse reaction em 09:20 Drug: SEROquel 150 mg Route: PO; em 09:46 Follow up: Response: No adverse reaction em Intake: 09/29 12:50 PO: 480ml (Water); Total: 480ml. sv 18:05 PO: 400ml (Juice); Total: 880ml. sv Output: 09/30 11:04 Urine: 1ml (Voided); Total: 1ml. jb4 14:00 Urine: 1ml (Voided); Total: 2ml. jb4 17:20 Urine: 1ml (Voided); Total: 3ml. jb4 Outcome: 10/01 17:24 ER care complete, transfer ordered by MD. kdr 18:37 Transferred by ground EMS to other acute care facility, Transfer form completed. em 18:37 Condition: good 18:37 Instructed on the need for transfer, Demonstrated understanding of instructions. 18:47 Patient left the ED. bd Signatures: Robyn Felix Christina, RN Polly Thomas ch RN Michele Avery RN RN sg Myers, Amanda, RN RN aj Rittger, Kevin, MD MD kdr Munoz, Edgar, TECHNICAL MARKETING ENGINEER TECHNICAL MARKETING ENGINEER em Theron, Abe em1 Melinda Harris RN GUSTAVO ss Zoraida Santos, TECHNICAL MARKETING ENGINEER TECHNICAL MARKETING ENGINEER ed1 Vida cummins, broadcast maintenance engineer EKG Tat1 Mani Garay PA PA cp Selam Andre tt1 Mike Tang, RN RN Jeffrey Muñoz jb4 Maikol Vega Maria 5 Sosa Antonio 3 Agustin Alves, RN RN bp Chrissy Soliz mw2 Elvin Cano, RN RN mg2 Yves Burton RN RN rv Corrections: (The following items were deleted from the chart) 09/29 12:32 12:30 Safety Checks: Personal items have been removed. The door is open or patient has ed1 been placed in a hallway bed/chair. There are no family/friend visitors at this time Sitter present at this time. ed1 12:46 12:46 Safety Checks: Personal items have been removed. The door is open or patient has ed1 been placed in a hallway bed/chair. There are no family/friend visitors at this time Sitter present at this time. ed1 09/30 00:20 00:17 Pulse 88bpm; Resp 18bpm; Pulse Ox 99% RA; Temp 98.3F Oral; Pain 0/10; mg2 mg2 00:24 00:17 BP 95 / 59; Pulse 88bpm; Resp 18bpm; Pulse Ox 99% RA; Temp 98.3F Oral; Pain 0/10; mg2 mg2 13:48 13:46 Safety checks: Items removed: yes. Door open/sign placed on door: yes. jb4 Family/friend present: no. jb4 15:00 10:37 Safety checks: Items removed: yes. Door open/sign placed on door: yes. jb4 Family/friend present: no. jb4 15:00 11:04 Safety checks: Items removed: yes. Door open/sign placed on door: yes. jb4 Family/friend present: no. jb4 15:00 14:00 Safety checks: Items removed: yes. Door open/sign placed on door: yes. jb4 Family/friend present: no. jb4 15:00 14:30 Safety checks: Items removed: yes. Door open/sign placed on door: yes. jb4 Family/friend present: no. jb4 15:59 15:30 BP 95 / 52; Pulse 93bpm; Resp 16bpm; Spontaneous; Pulse Ox 98% RA; Temp 98.3F jb4 Oral; Pain 7/10; jb4 22:57 20:58 Reassessment: receieved patient from AM shift. lying on bed, asleep. already on rv patient's gown. VS are stable. rv 23:17 19:30 Reassessment: patient got a little anxious and demanding for her Seroquel dose. rv facilitated and given orally. rv 10/01 11:20 11:18 Safety checks: Items removed: yes. Door open/sign placed on door: yes. tt1 Family/friend present: no. tt1 13:23 12:40 Safety checks: Items removed: yes. Door open/sign placed on door: yes. dh3 Family/friend present: no. tt1 16:28 15:41 BP 102 / 66; Pulse 82bpm; Resp 17bpm; Pulse Ox 100% RA; dh3 dh3
--- NOTE | 2017-10-01 17:25 | EDPHYS ---
Physician Documentation [facility] Name: Lizett Jacobsen Age: 47 yrs Sex: Female : 1970 Arrival Date: 09/29/2017 Time: 11:16 Bed 17 Private MD: ED Physician Juan A Parks HPI: 09/29 11:20 This 47 yrs old Black Female presents to ER via EMS with complaints of Suicidal cp Ideation. 11:20 The patient presents to the emergency department with psychosis, has experienced cp auditory hallucinations, voices are telling patient to commit sucide, suicide ideation, but the patient has no formulated plan. 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 - Ebola Screening: : Patient denies exposure to infectious person Patient denies travel to an Ebola-affected area in the 21 days before illness onset. - Social history:: Smoking status: Patient uses tobacco products, smokes one-half pack cigarettes per day. ROS: 11:25 Constitutional: Negative for body aches, chills, fever, poor PO intake. cp 11:25 Eyes: Negative for injury, pain, redness, and discharge. cp 11:25 Psych: Positive for suicidal ideation. cp 11:25 Cardiovascular: Negative for chest pain, edema, palpitations. cp 11:25 Respiratory: Negative for cough, shortness of breath, wheezing. cp 11:25 Abdomen/GI: Negative for abdominal pain, vomiting, diarrhea, constipation. 11:25 Neuro: Negative for altered mental status, headache, weakness. 11:25 All other systems are negative. Exam: 11:30 Head/Face: Normocephalic, atraumatic. Eyes: Pupils equal round and reactive to light, cp extra-ocular motions intact. Lids and lashes normal. Conjunctiva and sclera are non-icteric and not injected. Cornea within normal limits. Periorbital areas with no swelling, redness, or edema. 11:30 Constitutional: The patient appears in no acute distress, alert, awake, non-toxic, well developed, well nourished. 11:30 ENT: External ear(s): are unremarkable, Nose: is normal, Mouth: Lips: moist, Oral cp mucosa: moist, Posterior pharynx: is normal, airway is patent, no erythema, no exudate, Voice: is normal. 11:30 Neck: External neck: is normal, ROM/movement: is normal, is supple, without pain, no range of motions limitations, no meningismus, no nuchal rigidity, Lymph nodes: no appreciated lymphadenopathy. 11:30 Chest/axilla: Inspection: normal, Palpation: is normal, no crepitus, no tenderness. 11:30 Cardiovascular: Rate: bradycardic, Rhythm: regular. 11:30 Respiratory: the patient does not display signs of respiratory distress, Respirations: normal, no use of accessory muscles, no retractions, no splinting, no tachypnea, labored breathing, is not present, Breath sounds: are clear throughout, no decreased breath sounds, no stridor, no wheezing. 11:30 Abdomen/GI: Inspection: abdomen appears normal, Bowel sounds: active, all quadrants, Palpation: abdomen is soft and non-tender, in all quadrants, rebound tenderness, is not appreciated, voluntary guarding, is not appreciated, involuntary guarding, is not appreciated. 11:30 Back: pain, is absent, ROM is normal. 11:30 Skin: cellulitis, is not appreciated, no rash present. 11:30 Neuro: Orientation: to person, place \T\ time. Mentation: lucid, able to follow commands, Cerebellar function: is grossly normal, Motor: moves all fours, strength is normal, Sensation: no obvious gross deficits, Gait: is steady, at a normal pace, without difficulty. 11:30 Psych: Behavior/mood is pleasant, cooperative, Affect is calm, Patient having thoughts of suicide. Denies suicidal plan. Judgement / Insight is normal. Delusions/hallucinations are present and described as voices telling her to kill herself. 11:33 ECG was reviewed by the Attending Physician. cp Vital Signs: 11:31 BP 120 / 84; Pulse 58; Resp 17; Temp 98.0(O); Pulse Ox 100% on R/A; Weight 58.97 kg; ss Height 5 ft. 4 in. (162.56 cm); Pain 0/10; 16:40 BP 116 / 71; Pulse 68; Resp 16; Pulse Ox 100% ; sv 20:21 BP 144 / 86; Pulse 68; Resp 17; Temp 98.2; Pulse Ox 99% on R/A; mw2 09/30 00:17 BP 95 / 59; Pulse 88; Resp 18; Temp 98.3(O); Pulse Ox 99% on R/A; Pain 0/10; mg2 04:20 BP 110 / 60; Pulse 72; Resp 17; Temp 98.4; Pulse Ox 99% on R/A; mw2 07:19 BP 116 / 58; Pulse 65; Resp 18; Temp 98.3; Pulse Ox 99% on R/A; Pain 0/10; ch 10:24 BP 102 / 70; Pulse 76; Resp 16 S; Pulse Ox 100% on R/A; Pain 7/10; jb4 11:28 BP 101 / 61; Pulse 64; Resp 16 S; Temp 98.3(O); Pulse Ox 100% on R/A; Pain 7/10; jb4 15:30 BP 95 / 52; Pulse 93; Resp 16 S; Temp 98.3(O); Pulse Ox 98% on R/A; Pain 7/10; jb4 19:30 BP 104 / 60; Pulse 92 LA; Resp 16 S; Temp 98.5(O); Pulse Ox 98% on R/A; Pain 8/10; jb4 23:30 BP 97 / 57; Pulse 95; Resp 14; Pulse Ox 98% ; rv 0608 03:30 BP 101 / 61; Pulse 90; Resp 14; Pulse Ox 98% ; bp 08:00 BP 109 / 62; Pulse 79; Resp 18; Pulse Ox 100% on R/A; dh3 12:04 BP 107 / 54; Pulse 82; Resp 18; Pulse Ox 99% ; Pain 0/10; tt1 16:00 BP 102 / 66; Pulse 82; Resp 17; Pulse Ox 100% on R/A; dh3 09/29 11:31 Body Mass Index 22.31 (58.97 kg, 162.56 cm) ss 09/30 00:17 patient is sleeping. mg2 15:30 Pt was asleep prior to b/p being taken. jb4 MDM: 09/29 11:17 Patient medically screened. cp 12:00 Differential diagnosis: drug withdrawal. acute psychotic break, depression, psychosis cp secondary to non-compliance. 10/01 17:00 Data reviewed: vital signs, nurses notes. Counseling: I had a detailed discussion with kdr the patient and/or guardian regarding: the historical points, exam findings, and any diagnostic results supporting the discharge/admit diagnosis, lab results. ED course: The patient has been resting comfortably all day. Has asked for her psych meds once and has not been a threat to her self or others. She does admit to still being suicidal. 09/29 11:17 Order name: Acetaminophen; Complete Time: 12:44 cp 09/29 11:17 Order name: Basic Metabolic Panel; Complete Time: 12:44 cp 09/29 12:44 Interpretation: Normal except: NA 134. cp 09/29 11:17 Order name: CBC with Diff; Complete Time: 12:32 cp 09/29 11:17 Order name: ETOH Level; Complete Time: 12:44 cp 09/29 11:17 Order name: Hepatic Function; Complete Time: 12:44 cp 09/29 11:17 Order name: PT-INR; Complete Time: 12:32 cp 09/29 11:17 Order name: Ptt, Activated; Complete Time: 12:32 cp 09/29 11:17 Order name: Salicylate; Complete Time: 12:32 cp 09/29 11:17 Order name: Urine Drug Screen; Complete Time: 12:32 cp 09/29 11:41 Order name: Urine Dipstick--Ancillary (enter results); Complete Time: 12:32 em1 09/29 11:41 Order name: Urine --Ancillary (enter results); Complete Time: 12:32 em1 09/29 11:17 Order name: EKG; Complete Time: 11:18 cp 09/29 11:44 Order name: Diet Regular; Complete Time: 11:44 sv 09/30 06:43 Order name: Diet Regular; Complete Time: 06:43 mg2 09/30 12:06 Order name: Diet Heart Healthy; Complete Time: 12:06 aj 09/30 17:37 Order name: Diet Regular; Complete Time: 17:38 ag 10/01 06:57 Order name: Diet Regular; Complete Time: 06:58 em 10/01 11:32 Order name: Diet Regular; Complete Time: 11:32 aj 06 11:17 Order name: Urine Test (obtain specimen); Complete Time: 11:40 cp 09/29 11:17 Order name: EKG - Nurse/Tech; Complete Time: 11:43 cp 09/29 11:17 Order name: IV Saline Lock; Complete Time: 11:43 cp 09/29 11:17 Order name: Labs collected and sent; Complete Time: 11:43 cp 09/29 11:17 Order name: Urine Dipstick-Ancillary (obtain specimen); Complete Time: 11:40 cp 06/08 16:09 Order name: Diet Regular Pedi; Complete Time: 16:09 EC/06 11:33 Rate is 67 beats/min. Rhythm is regular. SD interval is normal. QRS interval is normal. cp QT interval is normal. No ST changes noted. Interpreted by me. Reviewed by me. Administered Medications: 12:42 CANCELLED (Duplicate Order): Tylenol 650 mg PO once sv 12:42 Drug: Tylenol 1000 mg Route: PO; sv 13:05 Follow up: Response: No adverse reaction sv 22:38 Drug: Tylenol 1000 mg Route: PO; mg2 0607 01:23 Follow up: Response: No adverse reaction mg2 06 22:38 Drug: hydrOXYzine 50 mg Route: PO; mg2 09/30 01:07 Follow up: Response: No adverse reaction mg2 06 22:40 Drug: Lisinopril 10 mg Route: PO; mg2 06 01:07 Follow up: Response: No adverse reaction mg2 09/29 23:00 Drug: SEROquel 300 mg Route: PO; ao 09/30 02:31 Follow up: Response: No adverse reaction mg2 11:35 Drug: hydrOXYzine 50 mg Route: PO; aj 10/01 06:56 Follow up: Response: No adverse reaction em 09/30 11:35 Drug: Amoxicillin 500 mg Route: PO; aj 10/01 06:56 Follow up: Response: No adverse reaction em 09/30 12:02 Drug: SEROquel 150 mg Route: PO; aj 10/01 06:56 Follow up: Response: No adverse reaction em 09/30 12:35 Drug: Nicoderm CQ 14 mg/24 hr 14 mg Route: Transdermal; Site: anterior chest wall; aj 10/01 06:57 Follow up: Response: No adverse reaction em 09:13 Drug: hydrOXYzine 50 mg Route: PO; em 09:46 Follow up: Response: No adverse reaction em 09:20 Drug: SEROquel 150 mg Route: PO; em 09:46 Follow up: Response: No adverse reaction em Disposition: 17:23 I agree with the assessment and plan of care. kdr Disposition: 10/01/17 17:24 Transfer ordered to Psych Facility. Diagnosis are Suicidal ideations, Major depressive disorder, recurrent. - Reason for transfer: Higher level of care. - Accepting physician is Accepting MD Lucie Garcia. - Condition is Fair. - Problem is an acute exacerbation. - Symptoms have improved. Signatures: Dispatcher [employer] EDMS Robyn Felix Stephanie, RN Vida Smith RN Juan A Carlos MD MD kdr Munoz, Edgar, HOTBED LEVER OPERATOR HOTBED LEVER OPERATOR em Melinda Harris RN RN ss Zoraida Santos, HOTBED LEVER OPERATOR HOTBED LEVER OPERATOR ed1 Mani Garay PA PA Mike Napoles RN Marcin Samuel MD MD gs Gardose, Michele, RN RN mg2 Corrections: (The following items were deleted from the chart) 09/29 12:42 12:33 Tylenol 650 mg PO once ordered. cp sv 10/01 18:47 17:24 10/01/2017 17:24 Transfer ordered to Psych Facility. Diagnosis is Suicidal bd ideations; Major depressive disorder, recurrent. Reason for transfer: Higher level of care. Accepting physician is Accepting MD Lucie Garcia. Condition is Fair. Problem is an acute exacerbation. Symptoms have improved. kdr 10/02 10:40 09/29 11:25 All other systems are negative, cp cp 10/02 10:40 09/29 11:25 Neuro: Negative for altered mental status, headache, weakness, cp cp
== END 2017-10-01 18:47 ==
LOC: ER 11:10
DX: F33.9 Major depressive disorder, recurrent, unspecified (principal); F17.210 Nicotine dependence, cigarettes, uncomplicated; Z88.6 Allergy status to analgesic agent
CPT/HCPCS: 36415; 80048; 80076; 80307; 80320; 80329; 81003; 81025; 85025; 85610; 85730; 93005; 99285